=== PATIENT | male | born 1980 | race Caucasian/White ===

== ENCOUNTER 2023-08-23 00:52 | Emergency (ER) | payer OTHER ==
[2023-08-23] MEDS ORDERED: Ibuprofen 800 MG TAB ONE (02:58)
[2023-08-23 03:08] LABS: ALT (SGPT) 39 U/L (8-55); AST (SGOT) 54 U/L (5-34); Acetaminophen Less than 10 mcg/mL (10.0-30.0); Albumin 4.7 g/dL (3.5-5.0); Alcohol Less than 10.0 mg/dL (Less than 10); Alkaline Phosphatase 65 U/L (40-110); Anion Gap 18 mmol/L (10-20); BUN (Urea Nitrogen) 19 mg/dL (8.9-20.6); Bilirubin, Total 4.2 mg/dL (0.2-1.2); Calc. Creatinine Clearance 0 mL/min (70-130); Calcium 9.8 mg/dL (7.8-10.44); Carbon Dioxide 22 mmol/L (22-29); Chloride 103 mmol/L (98-107); Estimated GFR 76; Globulin 3.4 g/dL (2.4-3.5); Glucose 118 mg/dL (70-105); Protein, Total 8.1 g/dL (6.0-8.3); Salicylate Less than 8.0 mg/dL (15.0-30.0); Sodium 139 mmol/L (136-145)
== END 2023-08-23 03:36 | disposition home or self-care (01) ==
LOC: MADERS 00:52
DX: S51.012A Laceration without foreign body of left elbow, initial encounter (principal); S30.1XXA Contusion of abdominal wall, initial encounter; R00.0 Tachycardia, unspecified; F17.210 Nicotine dependence, cigarettes, uncomplicated; V79.40XA Driver of bus injured in collision with unspecified motor vehicles in traffic accident, initial encounter
CPT/HCPCS: 80053; 80307

== ENCOUNTER 2023-12-10 00:40 | Emergency (ER) | payer OTHER ==
[2023-12-10] MEDS ORDERED: Lorazepam 2 MG/ML VIAL ONE (01:08)
[2023-12-10 01:25] LABS: #Basophils 0.1 thou/uL (0.0-0.2); #Eosinphils 0.3 thou/uL (0.0-0.7); #Lymphocytes 2.3 thou/uL (1.20-3.40); %Basophils 1.7 % (0.0-1.0); %Lymphocytes 26.8 % (21.0-51.0); %Neutrophils 57.6 % (42.0-75.0); Hemoglobin 15.3 g/dL (14.0-18.0); Mean Corpuscular HGB CONC 31.7 g/dL (32.0-36.0); Mean Corpuscular Hemoglobin 27.7 pg (27.0-31.0); Mean Corpuscular Volume 87.2 fl (78.0-98.0); Mean Platelet Volume 7.1 fL (7.4-10.4); Platelet Count 285 10x3/uL (130-400); RBC Distribution Width 11.8 % (11.5-14.5); Red Blood Cell (RBC) Count 5.51 mill/uL (4.70-6.10); White Blood Cell (WBC) Count 8.7 10x3/uL (4.8-10.8)
[2023-12-10 01:43] LABS: ALT (SGPT) 14 U/L (8-55); AST (SGOT) 22 U/L (5-34); Albumin 4.6 g/dL (3.5-5.0); Alkaline Phosphatase 62 U/L (40-110); Anion Gap 19 mmol/L (10-20); BUN (Urea Nitrogen) 8 mg/dL (8.9-20.6); Bilirubin, Total 2.6 mg/dL (0.2-1.2); Calc. Creatinine Clearance 0 mL/min (70-130); Calcium 9.8 mg/dL (7.8-10.44); Carbon Dioxide 19 mmol/L (22-29); Chloride 106 mmol/L (98-107); Estimated GFR 108; Globulin 3.2 g/dL (2.4-3.5); Glucose 102 mg/dL (70-105); Magnesium 1.7 mg/dL (1.6-2.6); Potassium 3.8 mmol/L (3.5-5.1); Protein, Total 7.8 g/dL (6.0-8.3); Sodium 140 mmol/L (136-145)
[2023-12-10 01:48] LABS: Troponin I 0.017 ng/mL (< 0.028)
== END 2023-12-10 01:50 ==
LOC: MADERS 00:40
DX: F15.921 Other stimulant use, unspecified with intoxication delirium (principal); F17.210 Nicotine dependence, cigarettes, uncomplicated
CPT/HCPCS: 71045; 80053; 83735; 84484; 85025; 93005; J2060